=== PATIENT | female | born 1955 | race Caucasian/White ===

== ENCOUNTER 2020-03-27 13:12 | Inpatient (IN) ==
[2020-03-27 13:41] LABS: Hemoglobin 12.1 g/dL (11.5-15.4); Mean Corpuscular HGB Conc 32.7 g/dL (31.6-35.5); Mean Corpuscular Hemoglobin 31.1 pg (28.0-33.3); Mean Corpuscular Volume 95.1 fL (83.0-100.0); Mean Platelet Volume 8.7 fL (9.4-12.4); Platelet Count 213 K/mcL (140-400); Red Blood Count 3.89 M/mcL (3.82-4.97); Red Cell Distribution Width 11.5 % (11.5-14.5); White Blood Count 5.3 K/mcL (4.3-11.1)
[2020-03-27 14:00] LABS: BUN/Creatinine Ratio 15 (6-26); Blood Urea Nitrogen 15 mg/dL (8-23); Calcium 9.1 mg/dL (8.6-10.3); Carbon Dioxide 28 mEq/L (23-29); Chloride 101 mEq/L (98-107); Glucose 103 mg/dL (70-105); Osmolality,Calculated 279 (280-300); Potassium 4.3 mEq/L (3.5-5.1); Sodium 134 mEq/L (136-145); eGFR For African Americans > 60 (> 60); eGFR For Non-African Americans 57 (> 60)
[2020-03-27] MEDS ORDERED: Isovue-370 500 ML BOTTLE IVP ONE (14:05)
[2020-03-27 14:51] LABS: Bilirubin,Urine Negative (Negative); Blood,Urine Negative (Negative); Clarity,Urine Clear (Clear); Color,Urine Light-Yellow (Yellow); Glucose,Urine (UA) Normal (Normal); Ketones,Urine Negative (Negative); Leukocyte Esterase,Urine Negative (Negative); Nitrite,Urine Negative (Negative); PH,Urine 7.5 pH Units (5.0-8.0); Protein,Urine Trace mg/dL (Neg-Trace); Urobilinogen,Urine Normal (Normal)
[2020-03-27] MEDS ORDERED: 0.9 % Sodium Chloride 1,000 ML IVC ONE (15:08)
[2020-03-27] MEDS ORDERED: levETIRAcetam 250 MG TABLET PO STA (15:25)
[2020-03-27] MEDS ORDERED: *HR* LORazepam 2 MG/ML VIAL IVP PRN (17:17)
[2020-03-27] MEDS ORDERED: Naloxone 0.4 MG/ML INJ IVP PRN (17:18)
[2020-03-27] MEDS ORDERED: Gadolinium Contrast Agent (WT Based) IV PRN (17:25)
[2020-03-27] MEDS: *HR* OxyCODONE/APAP 10/325 TABLET PO PRN (17:53)
[2020-03-27] MEDS: *HR* Heparin 5,000 UNIT/ML VIAL SQ SCH (17:55)
[2020-03-27] MEDS: levETIRAcetam 250 MG in 0.9 % Sodium Chloride 100 ML IVPB SCH (20:48)
[2020-03-27] MEDS: lisinopriL 10 MG TABLET PO SCH (20:53)
[2020-03-28 05:33] LABS: Basophils # 0.1 K/mcL (0.0-0.2); Eosinophils # 0.2 K/mcL (0.0-0.6); Eosinophils % 2.6 %; Hematocrit 34.8 % (35.3-44.9); Hemoglobin 11.2 g/dL (11.5-15.4); Immature Granulocytes % 0.1 % (0-4); Lymphocytes # 2.8 K/mcL (0.6-4.6); Lymphocytes % 39.4 %; Mean Corpuscular HGB Conc 32.2 g/dL (31.6-35.5); Mean Corpuscular Hemoglobin 31.4 pg (28.0-33.3); Mean Corpuscular Volume 97.5 fL (83.0-100.0); Mean Platelet Volume 9.1 fL (9.4-12.4); Monocytes # 0.7 K/mcL (0.0-1.3); Monocytes % 10.3 %; Neutrophils # 3.3 K/mcL (1.6-8.9); Platelet Count 218 K/mcL (140-400); Red Blood Count 3.57 M/mcL (3.82-4.97); Red Cell Distribution Width 11.4 % (11.5-14.5); Segmented Neutrophils % 46.6 %
[2020-03-28 05:48] LABS: BUN/Creatinine Ratio 14 (6-26); Blood Urea Nitrogen 14 mg/dL (8-23); Calcium 8.9 mg/dL (8.6-10.3); Carbon Dioxide 28 mEq/L (23-29); Chloride 104 mEq/L (98-107); Glucose 83 mg/dL (70-105); Magnesium 2.1 mg/dL (1.6-2.6); Osmolality,Calculated 282 (280-300); Potassium 4.3 mEq/L (3.5-5.1); Sodium 136 mEq/L (136-145); eGFR For African Americans > 60 (> 60); eGFR For Non-African Americans 56 (> 60)
[2020-03-28] MEDS: *HR* Heparin 5,000 UNIT/ML VIAL SQ SCH ×2 (05:57→16:47)
[2020-03-28] MEDS: levETIRAcetam 250 MG in 0.9 % Sodium Chloride 100 ML IVPB SCH (08:06)
[2020-03-28] MEDS: lisinopriL 10 MG TABLET PO SCH ×2 (08:06→08:14)
[2020-03-28] MEDS: *HR* OxyCODONE/APAP 10/325 TABLET PO PRN (13:23)
[2020-03-28 16:00] VITALS: BP 92/58
== END 2020-03-28 20:54 | disposition home or self-care (01) | DRG 101 ==
LOC: 3BNU 13:12 → EMEROOARM 13:12 → SUATTDRO 16:40 → 3BNU 17:12 → 2ANU 03-28 07:35
PROVIDERS: ADMIT Pharmacist; ATTEND Student in an Organized Health Care Education/Training Program